=== PATIENT | female | born 1975 | race Caucasian/White ===

== ENCOUNTER 2020-05-22 07:24 | Outpatient (CLI) | payer BC, SELFPAY ==
--- NOTE | ~2020-05-22 | MM_ITS ---
EXAMINATION: MM screening bernard BI w garry HISTORY: Screening mammogram TECHNIQUE: Craniocaudal and mediolateral oblique 3-D tomosynthesis images were obtained and synthetic 2-D images were generated. CAD analysis was submitted and interpreted. COMPARISON: 05/22/2019, 05/09/2018, 04/29/2017 bilateral digital screening mammogram examinations BREAST PARENCHYMAL COMPOSITION: There are scattered areas of fibroglandular density. FINDINGS: Mild asymmetry is noted on the right in the mid to upper outer breast. Diagnostic right bernard mogram is recommended, with ultrasound if required. Otherwise there is no evidence of suspicious mass, calcification, or architectural distortion to sugg est malignancy in either breast. There is no other suspicious interval change. IMPRESSION: 1. Right mid to upper outer breast asymmetry 2. Diagnostic right mammogram is recommended, with ultrasound if required BI-RADS Category 0: Incomplete: Needs additional imaging evaluation. Reviewed, dictated and finalized at location A. AR ATTENDANT
== END 2020-05-22 07:25 | disposition home or self-care (01) ==
LOC: ANHIMG 07:30
PROVIDERS: Visit Provider Obstetrics & Gynecology Gynecologic Oncology
DX: Z12.31 Encounter for screening mammogram for malignant neoplasm of breast (principal); R92.8 Other abnormal and inconclusive findings on diagnostic imaging of breast
CPT/HCPCS: 77063; 77067

== ENCOUNTER 2020-06-01 13:33 | Outpatient (CLI) | payer BC, SELFPAY ==
--- NOTE | ~2020-06-01 | MMUS_ITS ---
EXAMINATION: MM diagnostic mammo unilat RT, US breast RT limited HISTORY: Right breast asymmetry on screening mammogram TECHNIQUE: Additional 3-D tomosynthesis images of the right breast were performed and synthetic 2-D i mages were generated. CAD analysis was submitted and interpreted. High resolution limited right breas t ultrasound was performed. COMPARISON: 05/22/2020, 05/22/2019, 05/19/2018 FINDINGS: MAMMOGRAPHIC FINDINGS: There is a return to baseline fibroglandular appearance with spot compression of the right breast. No suspicious mass, calcification, or architectural distortion are identified. ULTRASOUND: No suspicious cystic or solid mass is identified. There is a 6 mm x 2 mm cyst at the 9:00 location 2 cm from the nipple. IMPRESSION: 1. No mammographic or sonographic evidence of malignancy. 2. Recommend routine screening mammography in one year. BI-RADS Category 2: Benign finding(s). Reviewed, dictated and finalized at location A. R GIFTS DIRECTOR IMPRESSION: 1. No mammographic or sonographic evidence of malignancy. 2. Recommend routine screening mammography in one year. BI-RADS Category 2: Benign finding(s).
== END 2020-06-01 13:34 | disposition home or self-care (01) ==
LOC: ANHIMG 13:41
PROVIDERS: Visit Provider Obstetrics & Gynecology Gynecologic Oncology
DX: R92.8 Other abnormal and inconclusive findings on diagnostic imaging of breast (principal)
CPT/HCPCS: 76642; 77065

== ENCOUNTER 2021-06-04 09:11 | Outpatient (CLI) | payer BC, SELFPAY ==
--- NOTE | ~2021-06-04 | MM_ITS ---
EXAMINATION: MM screening bernard BI w garry HISTORY: Screening TECHNIQUE: Craniocaudal and mediolateral oblique 3-D tomosynthesis images were obtained and synthetic 2-D images were generated. CAD analysis was submitted and interpreted. COMPARISON: Comparison to multiple prior studies sequentially, with oldest reviewed study dated 04/01. BREAST PARENCHYMAL COMPOSITION: Breast composed of scattered areas of fibroglandular density FINDINGS: There is no evidence of suspicious mass, calcification, or architectural distortion to sugg est malignancy in either breast. There has been no suspicious interval change. IMPRESSION: 1. No mammographic evidence of malignancy. 2. Recommend routine screening mammography in one year. BI-RADS Category 1: Negative Reviewed, dictated and finalized at location A. UATE ENGINEER
== END 2021-06-04 09:12 | disposition home or self-care (01) ==
LOC: ANHIMG 09:13
PROVIDERS: Visit Provider Obstetrics & Gynecology Gynecologic Oncology
DX: Z12.31 Encounter for screening mammogram for malignant neoplasm of breast (principal)
CPT/HCPCS: 77063; 77067

== ENCOUNTER 2022-06-06 10:12 | Outpatient (CLI) | payer BC, SELFPAY ==
--- NOTE | ~2022-06-06 | MM_ITS ---
EXAMINATION: MM screening bernard BI w garry HISTORY: Screening mammogram TECHNIQUE: Craniocaudal and mediolateral oblique 3-D tomosynthesis images were obtained and synthetic 2-D images were generated. CAD analysis was submitted and interpreted. COMPARISON: 06/2021 bilateral screening mammogram To diagnostic right mammogram and limited right breast ultrasound 05/22/2020, 05/22/2019, 05/09/2018 bilateral screening mammogram examinations BREAST PARENCHYMAL COMPOSITION: There are scattered areas of fibroglandular density. FINDINGS: There is no evidence of suspicious mass, calcification, or architectural distortion to sugg est malignancy in either breast. There has been no suspicious interval change. IMPRESSION: 1. No mammographic evidence of malignancy. 2. Recommend routine screening mammography in one year. BI-RADS Category 1: Negative Reviewed, dictated and finalized at location A. T OFFICE DEVELOPER
== END 2022-06-06 10:13 | disposition home or self-care (01) ==
LOC: ANHIMG 10:24
PROVIDERS: Visit Provider Obstetrics & Gynecology Gynecologic Oncology
DX: Z12.31 Encounter for screening mammogram for malignant neoplasm of breast (principal)
CPT/HCPCS: 77063; 77067

== ENCOUNTER 2023-11-01 12:52 | Outpatient (CLI) | payer BC, SELFPAY ==
--- NOTE | 2023-11-01 13:14 | ECG_ITS ---
Test Date: 2023-11-01 13:24:07 Measurements Intervals [place] Rate: 91 P: 54 CT: 166 QRS: 18 QRSD: 82 T: 67 QT: 361 QTc: 446 Interpretive Statements SINUS RHYTHM POOR R WAVE PROGRESSION BORDERLINE ST-T WAVE ABNORMALITY- HIGH LATERAL LEADS BASELINE ARTIFACT- I, II, III, AVR, AVL, AVF, V1-V3 BORDERLINE ECG No previous ECG available for comparison Electronically Signed On 11-01-2023 15:04:41 CDT by Alok Angel D.O.
[2023-11-01 14:14] LABS: Alanine Aminotransferase 38 U/L (6-35); Albumin Level 4.5 g/dL (3.5-5.1); Alkaline Phosphatase 84 U/L (38-126); Anion Gap 6 mmol/L (4-12); Aspartate Amino Transferase 31 U/L (14-36); Bilirubin,Total 0.4 mg/dL (0.2-1.3); Blood Urea Nitrogen 13 mg/dL (7-17); Calcium 9.3 mg/dL (8.4-10.2); Carbon Dioxide 26 mmol/L (22-30); Chloride 107 mmol/L (98-107); Estimated Glomerular Filt Rate 59; Glucose 85 mg/dL (65-110); Potassium 4.1 mmol/L (3.4-5.0); Sodium 139 mmol/L (137-145)
== END 2023-11-01 12:53 | disposition home or self-care (01) ==
LOC: ANHSURGERY 13:02
PROVIDERS: Visit Provider Obstetrics & Gynecology
DX: N92.0 Excessive and frequent menstruation with regular cycle (principal); I10 Essential (primary) hypertension; R94.31 Abnormal electrocardiogram [ECG] [EKG]
CPT/HCPCS: 36415; 80053; 86850; 86900; 86901; 93005

== ENCOUNTER 2023-11-08 01:16 | Day surgery (SDC) | payer BC, SELFPAY ==
[2023-10-30 14:35] VITALS: BMI 37.9
--- NOTE | 2023-10-30 14:45 | SUR.PREOP ---
Report to the Outpatient Waiting Room, entrance under the green pavilion located off [facility], at time 6:00a.m. on date 11/08/2023. Planned Procedure Time: 7:30a.m. Time changes happen often and if your time is changed the preop area will call you the afternoon before. - You and your visitor will be asked to self-screen and do not enter if you have any COVID symptoms. - A mask is optional within the hospital at this time. Patients may have clear liquids (water, carbonated beverages, clear teas, apple juice) until 3 hours prior to surgery with a maximum of 20 ounces. - No food from midnight until time of surgery - Infants may have breast milk until 4 hours before surgery, formula 6 hours prior to surgery. - Children will be allowed to drink immediately following surgery. If applicable, please bring a bottle or sippy cup to assist with drinking. Juice, water, soda, and popsicles are readily available. For infants on formula, please bring formula the day of surgery. Pacifiers are allowed. Take the following medications with a SIP of water the morning of surgery: desvenlafaxine, topiramate DO NOT STOP ANY OF YOUR OTHER PRESCRIPTION MEDICATIONS PRIOR TO SURGERY ?EXCEPT THE FOLLOWING Medications to discontinue per physician: N/A Date to take last dose: N/A Please no make-up, nail lithuanian, hairspray, perfume, deodorant, or body powder the day of surgery. No jewelry (including any body piercings) or valuables the day of surgery, leave them at home. Please take a shower or bath the night before, or the morning of, surgery with an antibacterial soap. Wear comfortable, loose fitting clothing. Children are encouraged to wear pajamas. - Jewelry must be removed prior to entering the operating room. Rings and piercings that are not removed may be cut off. - The hospital will not accept responsibility for valuables. - Please leave all valuables, including medications, at home the day of surgery. If you are going home after surgery, a licensed fast food delivery driver must drive you home. - NO public transportation without another adult if you receive anesthesia. - We recommend that an adult stay with you for 24 hours following discharge. - We also recommend that you do not drive, make important decision, drink alcoholic beverages, or take any drugs that were not prescribed by your health care provider for at least 24 hours after your discharge time. For Pediatric surgeries, we recommend two adults accompany the child home. Follow any additional instructions given to you from your surgeon. If you or anyone in your household have experienced Covid symptoms in the past week, please notify your surgeon or the nurse liaison at the phone number below for possible testing. Telephone instructions given to Liz Penny and asked if any additional questions and then verbalized understanding. Patient advised to call surgeon office or pre surgery nurse liaison [phone] if any additional questions.
[2023-11-08] VITALS (10 sets, daily range): BP systolic 119–133; BP diastolic 61–92; PULSE 65–97; RESP 11–18; TEMP 36.1–37; O2SAT 95–100
[2023-11-08] MEDS: ACETAMINOPHEN 500 MG TABLET 1000 MG PO (06:40)
[2023-11-08] MEDS: KETOROLAC 15 MG/ML VIAL (*BKC) IV PUSH (06:40)
--- NOTE | 2023-11-08 06:58 | P.PNAN_ITS ---
Anes - Initial Pre Proc Eval Procedure: Operation Date: 11/08/23 07:30 Proposed Procedures p Total Laparoscopic Hysterectomy with Left Salpingo-oophorectomy - Richard Yu MD Date/Time: 11/08/23 06:58 Surgeon: Richard Yu MD Pre Op Diagnosis: menorrhagia Patient Data Age: 48 Gender: F Height: 1.7 m Weight: 109.77 kg Allergies Allergy/AdvReac Type Severity Reaction Status Date / Time No Known Allergies Allergy Mild Verified 11/08/23 06:44 Home Medications Medication Instructions Recorded Confirmed Type desvenlafaxine succinate 100 mg 100 mg PO DAILY 12/13/21 11/08/23 History tablet,extended release 24 hr losartan 50 mg tablet 50 mg PO DAILY 12/13/21 11/08/23 History pantoprazole 40 mg tablet,delayed 40 mg PO QAM 12/13/21 11/08/23 History release topiramate 50 mg tablet 50 mg PO BID 12/13/21 11/08/23 History Patient hx anesthesia problems: none Family hx anesthesia problems: post op nausea/vomiting Results Review: All pre-operative results and documents have been reviewed as part of the pre- operative evaluation. COUNT INCLUDES THE [facility] Past Medical History Medical History History of gastroesophageal reflux (GERD) History of ovarian cancer (~2000) removal of right ovary Hypertension Migraines Surgical History Surgical History History of cholecystectomy (~2017) Family History Family History Other Family history of rheumatoid arthritis Social History Social History Smoking status: Never smoker Alcohol intake: never Living arrangements: with family Anes - Eval Final PreProcedure Day of Procedure 11/08/23 06:58 Patient weight: obese Heart: regular rate and rhythm Lungs: clear to auscultation Airway: Mallampati scale class II Neurological: alert and oriented Last oral intake: >/= 8 hours ASA classification: III Emergent: no Anesthetic plan: proceed Anesthesia type and monitoring: general ETT and standard monitoring Results Review: All pre-operative results and documents have been reviewed as part of the pre- operative evaluation. Informed Consent: The patient's anesthetic plan and its attendant risks and benefits were discussed with the patient/family/POA. Questions were solicited and answers provided to the satisfaction of the patient/family/POA.
[2023-11-08] MEDS: LACTATED RINGERS 1,000 ML 30 ML IV CONT ×2 (07:00→09:05)
--- NOTE | 2023-11-08 07:09 | WPDHPUPDATE1 ---
History and Physical Update Update Date/Time: 11/08/23 07:09 History and Physical has been reviewed, including an updated exam of the patient. There are NO changes in the patient's condition. Risks, benefits, and alternatives have been discussed and questions answered. Patient agrees to proceed with procedure.
[2023-11-08] MEDS: ceFAZolin 2 GM/D5W 50 ML 2 GM/50 ML BAG IVPB (07:28)
[2023-11-08] MEDS: ceFAZolin SODIUM 1 GM VIAL (08:05)
[2023-11-08] MEDS: METHYLENE BLUE 0.5% INJ 10 ML AMPULE IRRIGATION (08:24)
--- NOTE | 2023-11-08 09:19 | W.PM.PROC2 ---
Procedure Note - Detailed Date of Procedure 11/08/23 Pre-op Diagnosis menorrhagia Post-op Diagnosis Same Procedure Performed Total laparoscopic hysterectomy and left salpingo-oophorectomy, resection of nodule in fabiola-rectal fat. Surgeon Richard Yu MD Anesthesia General Findings Mildly enlarged uterus, absent right tube and ovary, normal-appearing left tube and ovary, nodule in the fabiola-rectal fat. Description of Procedure This patient was taken to the operating room. She was prepped and draped in the dorsal lithotomy position after induction of general anesthesia. The uterine manipulator and Delia cup were placed. This was done with a speculum and tenaculum. The speculum was placed. The cervix was grasped with a tenaculum. The stay sutures were placed at 3 and 9:00 a.m.. The stay sutures of 0 Vicryl were brought through the appropriately sized Delia cup. The tip of the NIRAV manipulator was placed in the intrauterine cavity. The cup was slid into place around the cervix and into the fornices. It was locked into place. The sutures were then wrapped around the handle and tied under tension. A 5 mm skin incision was made in the left upper quadrant the abdomen. A 5 mm trocar was inserted into the intrauterine cavity under direct visualization of the scope. Pneumoperitoneum was achieved. A left lower quadrant 11 mm incision was made with scalpel. An 11 mm trocar was inserted into the anterior abdominal cavity under direct visualization the scope. A 5 mm infraumbilical incision was made with a scalpel and a 5 mm trocar was inserted the intra-abdominal cavity under direct visualization of the scope. Bilateral ureteral lysis was performed. This was done from the pelvic brim down to the uterine artery. This was done with careful dissection using sharp and blunt dissection. The infundibulopelvic ligaments were isolated after identification of the ureters bilaterally. The infundibulopelvic ligament On the right was cauterized and transected with LigaSure cautery. The para ovarian tissue was cauterized and transected with LigaSure cautery on the right side. Moving around the ovary into the broad ligament the tissue was cauterized transected with LigaSure cautery. The round ligaments were cauterized transected with LigaSure cautery this was all done in a bilateral fashion. In a stepwise fashion along the lateral aspects of the uterus the round ligament and broad ligaments were cauterized transected down to the level of the uterine arteries. A bladder flap was created in the bladder was moved distally to the end of the cervix and over the Delia cup. The bilateral uterine arteries were cauterized and transected. Colpotomy was then performed. In a circumferential fashion the vagina was transected using unipolar cautery. The incision was made down on the Delia cup. The uterus, cervix, fallopian tubes and ovaries were taken out through the vagina. A pneumo occluder was placed in the vagina. The vaginal cuff was closed with a 0 V lock suture in a running fashion. The pelvis was irrigated with copious amounts antibiotic irrigation. The ureters were again examined and found to be intact and flowing freely under the uterine arteries into the bladder. Surgicel was applied, perirectal mass was removed from the perirectal fat. This was performed with scissors and cautery. Cystoscopy was performed. The cystoscope was inserted in the ureteral orifices were examined. methylene blue had been previously given was seen to egress from both ureteral orifices. The bladder was intact . The cystoscope was withdrawn. The vagina was irrigated with Betadine solution after removal of the Pneumo occluder. The patient was taken to recovery room. She was stable condition. Sponge lap and needle counts were correct x2. Drains Yes Packing No Pathology Yes Complications No immediate complications Condition Stable Disposition Floor
[2023-11-08] MEDS: SCOPOLAMINE 1 MG PATCH 1 PATCH TRANSDERM (09:22)
[2023-11-08] MEDS: ONDANSETRON INJ 4 MG/2 ML VIAL IV PUSH (09:22)
[2023-11-08] MEDS: fentaNYL CITRATE INJ (*CRX) 100 MCG/2 ML VIAL 25 MCG IV PUSH ×6 (09:26→10:25)
--- NOTE | 2023-11-08 10:37 | ADMGEN ---
This patient, Chelsea Penny, was admitted to OB 2nd Floor Room 289-00. Patient/family oriented to hospital policies and general routines including ID bracelet, bed and alarms, visiting hours, pain management, procedures, bathroom and other care routines, personal items, smoking policy, room service/diet, and visiting hours. Information on how to activate the Rapid Response Team has been discussed. Patient/Family are encouraged to report perceived risks to care and to ask questions if they do not understand what they are told or what they should do.
[2023-11-08] MEDS: DEXTROSE 5%/0.45% SOD CHL 1,000 ML 125 ML IV CONT (11:10)
[2023-11-08] MEDS: KETOROLAC 30 MG/ML VIAL (*BKC) IV PUSH (11:11)
[2023-11-08] MEDS: SIMETHICONE 80 MG TAB.CHEW PO ×2 (12:17→17:46)
[2023-11-08] MEDS: HYDROcodone/acetaminophen (*CRX) 10-325 MG TABLET 1 TAB PO ×3 (12:17→18:18)
[2023-11-08] MEDS: TOPIRAMATE 25 MG TABLET 50 MG PO (17:46)
[2023-11-08] MEDS: IBUPROFEN 600 MG TABLET PO (17:46)
[2023-11-08] MEDS: HYDROcodone/acetaminophen (*CRX) 5-325 MG TABLET 1 TAB PO (21:21)
[2023-11-08] MEDS: DESVENLAFAXINE SUCCINATE 50 MG TAB.ER.24H 100 MG PO (21:21)
[2023-11-08] MEDS: LOSARTAN POTASSIUM 50 MG TABLET PO (21:21)
[2023-11-08] MEDS: CALCIUM CARBONATE (TUMS) 500 MG (200 MG ELEMENTAL) PO (22:45)
[2023-11-09] MEDS: IBUPROFEN 600 MG TABLET PO ×2 (00:23→07:26)
[2023-11-09] MEDS: HYDROcodone/acetaminophen (*CRX) 5-325 MG TABLET 1 TAB PO (00:23)
[2023-11-09 00:29] VITALS: BP 113/57; PULSE 70; RESP 18; TEMP 36.7; O2SAT 97
[2023-11-09] MEDS: HYDROcodone/acetaminophen (*CRX) 10-325 MG TABLET 1 TAB PO ×2 (04:21→07:26)
[2023-11-09 04:23] VITALS: BP 140/77; PULSE 79; RESP 18; TEMP 37.6; O2SAT 99
[2023-11-09] MEDS: SIMETHICONE 80 MG TAB.CHEW PO (07:25)
[2023-11-09 08:20] VITALS: BP 107/60; PULSE 84; RESP 16; TEMP 36.6; O2SAT 98
--- NOTE | 2023-11-09 08:33 | PM.GYNPNOP ---
ELECTRONIC COMPONENT PROCESSOR - A/P Postoperative Procedures: Procedures Operation Date: 11/08/23 07:30 Actual Procedure Side Surgeon p Total Laparoscopic Hysterectomy with Left Salpingo-oophorectomy Left Richard Yu MD Postoperative day: 1 Postoperative status: doing well and other (Tollerating Regular Diet) Postoperative plan: routine post-op care and discharge Time Spent With Patient Time: Total time spent is greater than 50% in coordination of care (as documented) at patient's floor/unit and/or counseling patient: Time with patient: 15 - 25 minutes ELECTRONIC COMPONENT PROCESSOR- PN:Subj Post-Op Subjective Date/time seen: 11/09/23 08:33 Subjective: patient reports feeling better, pain is well controlled and patient is tolerating oral intake Exam Const: General: cooperative, healthy appearing, comfortable and no acute distress Resp: Auscultation: no crackles, no rales, no rhonchi and no wheezes Cardio: Rhythm: regular rhythm Heart sounds: no click and no murmurs GI: Inspection: non-distended Auscultation: normal bowel sounds Other: Incisions - CDI Extrem: General: normal to inspection, no pedal edema and no calf tenderness ELECTRONIC COMPONENT PROCESSOR - PN: Obj Data Vital Signs Vital Signs: Vital Signs - 24 hr 11/08/23 09:05 11/08/23 09:20 11/08/23 09:35 Temperature 98 F Pulse Rate 80 65 77 Respiratory Rate 16 12 12 Blood Pressure 122/74 128/75 124/81 Pulse Oximetry 100 97 98 Oxygen Delivery Simple Face Mask Simple Face Mask Simple Face Mask Oxygen Flow Rate 8 8 8 11/08/23 09:50 11/08/23 10:05 11/08/23 10:20 Temperature Pulse Rate 75 85 86 Respiratory Rate 11 L 13 14 Blood Pressure 119/73 128/77 127/84 Pulse Oximetry 95 98 100 Oxygen Delivery Nasal Cannula Nasal Cannula Nasal Cannula Oxygen Flow Rate 2 2 2 11/08/23 10:40 11/08/23 10:40 11/08/23 15:00 Temperature 97 F L 97.9 F Pulse Rate 93 97 Respiratory Rate 16 16 Blood Pressure 123/61 125/73 Pulse Oximetry 96 96 98 Oxygen Delivery Nasal Cannula Oxygen Flow Rate 2 11/08/23 15:00 11/08/23 20:07 11/09/23 00:29 Temperature 98.6 F 98.1 F Pulse Rate 85 70 Respiratory Rate 18 18 Blood Pressure 133/87 113/57 L Pulse Oximetry 100 97 Oxygen Delivery Room Air Oxygen Flow Rate 11/09/23 04:23 Temperature 99.6 F Pulse Rate 79 Respiratory Rate 18 Blood Pressure 140/77 Pulse Oximetry 99 Oxygen Delivery Oxygen Flow Rate Intake/Output Intake/Output: Intake & Output 11/06/23 11/07/23 11/08/23 11/09/23 23:59 23:59 23:59 23:59 Intake Total 2600 Output Total 480 Balance 2120 Meds/Results Medications: Active Medications Generic Name Dose Route Start Last Admin Trade Name Freq PRN Reason Stop Dose Admin Hydrocodone Bitart/Acetaminophen 1 tab 11/08/23 10:28 11/09/23 00:23 Hydrocodone/Acetaminophen (*Crx) 5-325 Mg Tablet PO 1 tab Q3H PRN Administration Pain Rated 5 or Less Hydrocodone Bitart/Acetaminophen 1 tab 11/08/23 10:28 11/09/23 07:26 Hydrocodone/Acetaminophen (*Crx) 10-325 Mg Tablet PO 1 tab Q3H PRN Administration Pain Rated 6 or Greater Calcium Carbonate 200 mg 11/08/23 22:29 11/08/23 22:45 Calcium Carbonate (Tums) 500 Mg (200 Mg Elemental) PO 200 mg Q6H PRN Administration Indigestion Desvenlafaxine Succinate 100 mg 11/08/23 21:00 11/08/23 21:21 Desvenlafaxine Succinate 50 Mg Tab.Er.24h PO 100 mg QHS EARNEST Administration Dextrose/Sodium Chloride 1,000 mls @ 125 mls/hr 11/08/23 10:28 11/09/23 06:25 Dextrose 5% Sodium Chloride 0.45% IV CONT Not Given .Q8H EARNEST Ibuprofen 600 mg 11/08/23 10:28 11/09/23 07:26 Ibuprofen 600 Mg Tablet PO 600 mg Q6H PRN Administration Cramping Ketorolac Tromethamine 30 mg 11/08/23 10:28 11/08/23 11:11 Ketorolac 30 Mg/Ml Vial (*Bkc) IV PUSH 11/13/23 10:27 30 mg Q6H PRN Administration Pain Rated 4-6 Losartan Potassium 50 mg 11/08/23 21:00 11/08/23 21:21 Losartan Potassium 50 Mg Tablet PO 50 mg
[2023-11-09] MEDS: PANTOPRAZOLE 40 MG TABLET PO (09:05)
[2023-11-09] MEDS: TOPIRAMATE 25 MG TABLET 50 MG PO (09:05)
== END 2023-11-09 09:58 | disposition home or self-care (01) ==
LOC: ANHSURGERY 09:16 → ANHOB2 10:31
PROVIDERS: Visit Provider Obstetrics & Gynecology
PROC: 0UT9FZZ Resection of Uterus, Via Natural or Artificial Opening With Percutaneous Endoscopic Assistance (ICD-10-PCS; CPT 58571; principal; 2023-11-08 07:30)
DX: D25.1 Intramural leiomyoma of uterus (principal); N80.03 Adenomyosis of the uterus; N92.0 Excessive and frequent menstruation with regular cycle; K62.89 Other specified diseases of anus and rectum; Z85.43 Personal history of malignant neoplasm of ovary; I10 Essential (primary) hypertension; K21.9 Gastro-esophageal reflux disease without esophagitis; E66.9 Obesity, unspecified; Z68.37 Body mass index [BMI] 37.0-37.9, adult; Z15.02 Genetic susceptibility to malignant neoplasm of ovary
CPT/HCPCS: 58571; 45999; 88304; 88307; 99199; A9270; J0690; J1100; J1596; J1885; J2250; J2270; J2405; J2704; J3010; J7030; J7120; Q9968

== ENCOUNTER 2024-03-04 07:02 | Outpatient (CLI) | payer BC, SELFPAY ==
--- NOTE | ~2024-03-04 | XR_ITS ---
HISTORY: M25.552 - Pain in left hip COMPARISON: None TECHNIQUE: A single AP view of the pelvis with 2 views of the left hip joint FINDINGS: No acute or subacute fracture, erosion, lytic or sclerotic lesion is present. Trace sclerosis detected within the lower two thirds of the bilateral sacroiliac joint spaces. Superior lateral sclerosis within the bilateral femoral acetabular joint spaces. Osteophyte formation within the right hip. Joint spaces are otherwise well preserved and alignment is normal. Soft tissues are unremarkable without foreign body or significant calcification. Normal mineralization. IMPRESSION: Trace degenerative disease, without acute fracture. Otherwise, unremarkable evaluation of the pelvis and left hip, as detailed above. Reviewed, dictated and finalized at location A. MACHINE TENDER IMPRESSION: Trace degenerative disease, without acute fracture. Otherwise, unremarkable evaluation of the pelvis and left hip, as detailed jim barbour
== END 2024-03-04 07:03 | disposition home or self-care (01) ==
PROVIDERS: Visit Provider Orthopaedic Surgery
DX: M25.552 Pain in left hip (principal)
CPT/HCPCS: 73502